=== PATIENT | male | born 1970 | race African-American/Black ===

== ENCOUNTER 2021-01-24 19:11 | Emergency (ER) | payer BC, MEDICAID ==
--- NOTE | 2021-01-24 19:31 | PCM.EKG ---
#1 Interpretation EKG Date: 01/24/21 Time: 19:23 Rhythm: NSR Rate (Beats/Min): 100 [place]: Normal P-Wave: Present QRS: Normal ST-T: Normal QT: Normal Comparison: NA - No Prior EKG EKG Interpretation Comments: Sinus tachycardia
[2021-01-24] MEDS ORDERED: Aspirin 81 MG Tab.Chew PO ONE (19:33)
[2021-01-24] MEDS ORDERED: Ketorolac 15 MG/ML SDV IM ONE (19:53)
--- NOTE | 2021-01-24 20:13 | CR ---
INDICATION: Chest pain. TECHNIQUE: Chest 1 view. COMPARISON: None FINDINGS: Cardiovascular and mediastinum: Heart size and vasculature are normal in caliber and appearance. Mediastinum is within normal limits. Lungs and pleural space: Lungs are clear. No sign of infiltrate or mass. No sign of pleural effusion. No pneumothorax. Bones and soft tissues: No significant findings. IMPRESSION: Lungs are clear. Dictated by Maynor Rucker MD @ 01/24/2021 8:11:37 PM (Electronically Signed)
[2021-01-24 20:29] LABS: BLOOD UREA NITROGEN,BUN 8 mg/dL (7.0-18.0); CARBON DIOXIDE,CO2 28.6 mmol/L (21.0-32.0); CHLORIDE,CL 103 mmol/L (98-107); GLUCOSE RANDOM 122 mg/dL (74-106); POTASSIUM,K 3.7 mmol/L (3.5-5.1); SODIUM,NA 140 mmol/L (136-148)
[2021-01-24] MEDS ORDERED: Iopamidol 755 MG/ML 500 ML Multipack Bottle IVPUSH ONE (21:56)
[2021-01-24 22:50] LABS: CORONAVIRUS COVID-19 NAA POSITIVE (NEGATIVE); INFLUENZA A NAA NEGATIVE (NEGATIVE); INFLUENZA B NAA NEGATIVE (NEGATIVE)
--- NOTE | 2021-01-24 23:09 | EDM.PDOC ---
ED HPI GENERAL MEDICAL PROBLEM - General Chief Complaint: Headache Stated Complaint: HEADACHE Time Seen by Provider: 01/24/21 19:20 - History of Present Illness INITIAL COMMENTS - FREE TEXT/NARRATIVE: CHIEF COMPLAINT(S): Headache and chest pain HISTORY OF PRESENT ILLNESS: This is a 50-year-old man without any significant past medical history who comes to the emergency department with a chief complaint of headache and chest pain. The patient states that for approximately 1 day now he has been experiencing headache and chest pain. He describes his headache as bifrontal not associated with any blurry vision, double vision, loss of vision, numbness, tingling, weakness. In addition he states that he is also experiencing right-sided chest pain which is intermittent. He denies any shortness of breath, cough, runny nose. He currently rates both pain as 5 out of 10. He has not yet tried anything for the pain. There are no exacerbating or relieving factors. He states that he is vaccinated however he did get his first dose 3 days ago. He denies any history of CAD or CHF, recent travel, recent surgery or prior history of DVT or PE. REVIEW OF SYSTEMS: Constitutional: Denies fever, chills. Eyes: Denies eye pain Ears, Nose, Mouth, & Throat: Denies earache Cardiovascular: Positive for chest pain Respiratory: Denies shortness of breath Gastrointestinal: Denies Nausea, vomiting, diarrhea, hematochezia. Genitourinary: Denies hematuria Skin:Denies a rash MSK: Denies joint pain Neurological: Positive for headache. Denies blurred vision, numbness, tingling, weakness, diplopia Psychiatric: Denies depression PAST MEDICAL HISTORY: As per history of present illness and as reviewed below otherwise noncontributory. SURGICAL HISTORY: As per history of present illness and as reviewed below otherwise noncontributory. SOCIAL HISTORY: As per history of present illness and as reviewed below otherwise noncontributory. FAMILY HISTORY: As per history of present illness and as reviewed below otherwise noncontributory. EXAMINATION OF ORGAN SYSTEMS/BODY AREAS: Constitutional: Blood pressure is 162/92, heart rate 98, respiratory rate 16 with an oxygen saturation 98% on room air. Temperature 36.5 General: Well-appearing man who is in no acute distress Psychiatric: Appropriate mood and affect. Eyes: No scleral icterus or conjunctival erythema ENMT: Moist mucous membranes. No pharyngeal erythema Cardiovascular: Regular, rate, and rhythm. No gallops, murmurs, or rubs. Bilateral upper extremity pulses symmetric and intact. No peripheral edema. No JVD. Respiratory: Lungs clear to auscultation bilaterally. No wheezes, rales, or rhonchi. Gastrointestinal: Soft, non-tender, non-distended. Normoactive bowel sounds Genitourinary: No suprapubic tenderness Musculoskeletal: Normal range of motion. Skin: No lesions or abrasions. Neurological: AOx4. CN grossly intact. Strength 5/5 in bilateral upper and lower extremity. Sensation is intact bilaterally in upper and lower extremity. Gait appears normal. Finger to nose, heel to solorio, rapid alternating movements intact. MEDICAL DECISION MAKING AND COURSE IN THE ED WITH INTERPRETATION/REVIEW OF DIAGNOSTIC STUDIES: This is a 50-year-old man without any significant past medical history who comes to the emergency department with bifrontal headache and intermittent chest pain who overall appears well and is mildly hypertensive. At this time given his age will obtain on ACS work-up. In addition PE is a consideration will obtain a D-dimer for stratification and obtaining angiogram if it is positive. Screening EKG was unremarkable. We will provide the patient with aspirin and Toradol for pain relief. DDx: ACS, Covid, pneumonia, pulmonary embolism Laboratory: CBC is unremarkable. BMP is unremarkable. Troponin is negative. D-dimer is elevated at 0.61. The radiological images were viewed by myself along with reading the report from the radiologist. Chest x-ray does not reveal an acute cardiopulmonary process. Given the elevated D-dimer will obtain a CT angiogram of the chest to evaluate for pulmonary embolism. The radiological images were viewed by myself along with reading the report from the radiologist. CT angiogram of the chest reveals no evidence of pulmonary embolism or acute intrathoracic process. Laboratory: Covid is positive. Influenza is negative. After labs and imaging I did discuss the results with the patient. I discussed that he would be stable for discharge. He was given strict return precautions and is to isolate for the next 10 days. He was amenable discharge and had no further questions DISPOSITION: The patient was discharged home in stable condition. The patient will follow up with primary care physician after isolation CONDITION: Fair PROCEDURES: None FINAL IMPRESSION(S)/DIAGNOSES: 1. Acute COVID-19 infection Hector Mccormick M.D. Right Chest Pain Score (Numeric/FACES): 5 - Related Data Allergies Allergy/AdvReac Type Severity Reaction Status Date / Time No Known Allergies Allergy Verified 01/24/21 19:20 Home Meds: Home Meds . [No Known Home Meds] 09/19/17 [History] Past Medical History - Past Health History Medical/Surgical History: Denies Medical/Surgical History - Infectious Disease History Infectious Disease History: Reports: None Social & Family History - Family History Family Medical History: No Pertinent Family History - Tobacco Use Tobacco Use Status *Q: Never Tobacco User - Caffeine Use Caffeine Use: Reports: Coffee - Recreational Drug Use Recreational Drug Use: No ED ROS GENERAL - Review of Systems Review Of Systems: See Below ED EXAM, GENERAL - Physical Exam Exam: See Below Course - Vital Signs Last Recorded V/S: Last Vital Signs Temp 36.1 C 01/25/21 00:09 Pulse 81 01/25/21 00:09 Resp 14 01/25/21 00:09 BP 151/82 H 01/25/21 00:09 Pulse Ox 98 01/25/21 00:09 - Orders/Labs/Meds Labs: Laboratory Tests 01/24/21 01/24/21 01/24/21 Range/Units 19:53 19:53 19:53 WBC 5.83 (4.0-11.0) K/uL RBC 4.64 (4.50-5.90) M/uL Hgb 14.0 (13.0-17.0) g/dL Hct 40.3 (38.0-50.0) % MCV 86.9 (80.0-98.0) fL MCH 30.2 (27.0-32.0) pg MCHC 34.7 (31.0-37.0) g/dL RDW Std Deviation 42.1 (28.0-62.0) fl RDW Coeff of Payal 13 (11.0-15.0) % Plt Count 252 (150-400) K/uL MPV 10.80 (7.40-12.00) fL Neut % (Auto) 61.6 (48.0-80.0) % Lymph % (Auto) 30.4 (16.0-40.0) % [place] % (Auto) 7.5 (0.0-15.0) % Eos % (Auto) 0.3 (0.0-7.0) % Baso % (Auto) 0.2 (0.0-1.5) % Neut # (Auto) 3.6 (1.4-5.7) K/uL Lymph # (Auto) 1.8 (0.6-2.4) K/uL [place] # (Auto) 0.4 (0.0-0.8) K/uL Eos # (Auto) 0.0 (0.0-0.7) K/uL Baso # (Auto) 0.0 (0.0-0.1) K/uL Nucleated RBC % 0.0 /100WBC Nucleated RBCs # 0 K/uL D-Dimer, Quantitative 0.61 H (0.0-0.50) mg/L FEU Sodium 140 (136-148) mmol/L Potassium 3.7 (3.5-5.1) mmol/L Chloride 103 (98-107) mmol/L Carbon Dioxide 28.6 (21.0-32.0) mmol/L BUN 8 (7.0-18.0) mg/dL Creatinine 0.9 (0.8-1.3) mg/dL Est Cr Clr Drug Dosing 93.45 mL/min Estimated GFR (MDRD) > 60.0 ml/min Glucose 122 H (74-106) mg/dL Calcium 8.9 (8.5-10.1) mg/dL Magnesium 2.1 (1.8-2.4) mg/dL Troponin I < 0.050 (0.000-0.056) ng/mL Influenza Type A RNA (NEGATIVE) Influenza Type B RNA (NEGATIVE) SARS-CoV-2 RNA (JOHN) (NEGATIVE) 01/24/21 Range/Units 22:03 WBC (4.0-11.0) K/uL RBC (4.50-5.90) M/uL Hgb (13.0-17.0) g/dL Hct (38.0-50.0) % MCV (80.0-98.0) fL MCH (27.0-32.0) pg MCHC (31.0-37.0) g/dL RDW Std Deviation (28.0-62.0) fl RDW Coeff of Payal (11.0-15.0) % Plt Count (150-400) K/uL MPV (7.40-12.00) fL Neut % (Auto) (48.0-80.0) % Lymph % (Auto) (16.0-40.0) % [place] % (Auto) (0.0-15.0) % Eos % (Auto) (0.0-7.0) % Baso % (Auto) (0.0-1.5) % Neut # (Auto) (1.4-5.7) K/uL Lymph # (Auto) (0.6-2.4) K/uL [place] # (Auto) (0.0-0.8) K/uL Eos # (Auto) (0.0-0.7) K/uL Baso # (Auto) (0.0-0.1) K/uL Nucleated RBC % /100WBC Nucleated RBCs # K/uL D-Dimer, Quantitative (0.0-0.50) mg/L FEU Sodium (136-148) mmol/L Potassium (3.5-5.1) mmol/L Chloride (98-107) mmol/L Carbon Dioxide (21.0-32.0) mmol/L BUN (7.0-18.0) mg/dL Creatinine (0.8-1.3) mg/dL Est Cr Clr Drug Dosing mL/min Estimated GFR (MDRD) ml/min Glucose (74-106) mg/dL Calcium (8.5-10.1) mg/dL Magnesium (1.8-2.4) mg/dL Troponin I (0.000-0.056) ng/mL Influenza Type A RNA NEGATIVE (NEGATIVE) Influenza Type B RNA NEGATIVE (NEGATIVE) SARS-CoV-2 RNA (JOHN) POSITIVE H (NEGATIVE) Meds: Medications Discontinued Medications Generic Name Dose Route Start Last Admin Trade Name Freq PRN Reason Stop Dose Admin Aspirin 324 mg 01/24/21 19:33 01/24/21 19:43 Aspirin 81 Mg Tab.Chew PO 01/24/21 19:34 324 mg ONETIME ONE Administration Iopamidol 100 ml 01/24/21 21:56 01/24/21 22:12 Iopamidol 755 Mg/Ml 500 Ml Multipack Bottle IVPUSH 01/24/21 21:57 100 ml ONETIME ONE Administration Ketorolac Tromethamine 15 mg 01/24/21 19:53 01/24/21 20:09 Ketorolac 15 Mg/Ml Sdv IM 01/24/21 19:54 15 mg ONETIME ONE Administration Departure - Departure Time of Disposition: 00:09 Disposition: Home, Self-Care 01 Condition: Fair Clinical Impression: COVID-19 - Discharge Information *PRESCRIPTION DRUG MONITORING PROGRAM REVIEWED*: No *COPY OF PRESCRIPTION DRUG MONITORING REPORT IN PATIENT JA: No Instructions: 10 Things You Can Do to Manage Your COVID-19 Symptoms at Home - [facility] (09/05/2020), Symptoms of COVID-19 - [facility] (04/14/2020), COVID-19: Quarantine vs. Isolation - [facility] (02/07/2020) Referrals: PCP,None [Primary Care Provider] - Forms: ED Department Discharge Additional Instructions: You were evaluated today on an emergent basis. At this time you were diagnosed with COVID-19. I do believe this is causing your symptoms. You should take acetaminophen 500-1000 mg every 6 hours as needed for fever and muscle aches. Please drink plenty of fluids and get plenty of rest over the next several days. We would recommend that you get a pulse oximeter from the pharmacy to keep an eye on your oxygen level. If your oxygen level drops below 91%, you should return to the ED for evaluation. You should return to the ER sooner if you start having any symptoms of shortness of breath or any other new or concerning symptoms. 1. Your COVID-19 screening is positive. That means you do have the coronavirus and you are considered contagious. Your vital signs and oxygen saturation are well enough that you were able to monitor your symptoms at home. Continue to monitor for trouble breathing, new confusion or inability to arouse, bluish lips or face or any of the other symptoms we discussed -if this occurs please return to the emergency room. 2. Please self quarantine over the next 10 days. Inform any persons that you have been in contact with since you started becoming symptomatic that you have tested positive; they should be made aware and take the appropriate steps as needed. 3. May alternate Tylenol and ibuprofen as needed for pain and fever management. 4. The [facility] department will be calling you and following up with you. The [place] COVID 19 Hotline phone number , They are open [place] - Tuesday 7am - 7pm. Follow up with your primary care provider for re-evaluation and re-testing after the 10 day quarantine and discuss when you should be seen. [facility] [address] [place] [address] [facility] [address] [place] [id number] The patient is informed of any results of their evaluation and diagnostic workup and all questions are answered. They are given discharge instructions and return precautions. The patient is stable for discharge. The patient states they understand and agree with the plan and that they will return if their symptoms get worse or if they have any new concerns. The following information is given to patients seen in the emergency department who are being discharged to home. This information is to outline your options for follow-up care. We provide all patients seen in our emergency department with a follow-up referral. The need for follow-up, as well as the timing and circumstances, are variable depending upon the specifics of your emergency department visit. If you don't have a primary care physician on staff, we will provide you with a referral. We always advise you to contact your personal physician following an emergency department visit to inform them of the circumstance of the visit and for follow-up with them and/or the need for any referrals to a consulting specialist. The emergency department will also refer you to a specialist when appropriate. This referral assures that you have the opportunity for follow-up care with a specialist. All of these measure are taken in an effort to provide you with optimal care, which includes your follow-up. Under all circumstances we always encourage you to contact your private physician who remains a resource for coordinating your care. When calling for follow-up care, please make the office aware that this follow-up is from your recent emergency room visit. If for any reason you are refused follow-up, please contact the [facility] Emergency Department at and asked to speak to the emergency department charge nurse. Sepsis Event Note (ED) - Evaluation Sepsis Screening Result: No Definite Risk
--- NOTE | 2021-01-24 23:12 | CT ---
INDICATION: Chest pain, shortness of breath TECHNIQUE: Contrast enhanced axial CT imaging through the chest, optimized for assessment of the pulmonary arterial tree. 100 mL Isovue 370 contrast agent was administered intravenously. Sagittal and coronal reconstructions are provided. COMPARISON: None FINDINGS: There is adequate opacification of the pulmonary arterial tree without evidence of thromboembolism. The main pulmonary artery is nonenlarged. The heart is normal in size. There is no pericardial effusion. The thoracic aorta is normal in caliber. There is no mediastinal lymphadenopathy. The lungs are clear. There is no pleural effusion or pneumothorax. The thoracic osseous structures are unremarkable. No significant abnormality is demonstrated in the visualized upper abdomen. IMPRESSION: No evidence of pulmonary embolism or other acute intrathoracic process. Please note that all CT scans at this facility use dose modulation, iterative reconstruction, and/or weight-based dosing when appropriate to reduce radiation dose to as low as reasonably achievable. Dictated by Shree Tong MD @ 01/24/2021 11:10:47 PM (Electronically Signed)
== END 2021-01-25 00:44 | disposition home or self-care (01) ==
LOC: MW.ED 19:11
DX: U07.1 COVID-19 (principal)
CPT/HCPCS: 0240U; 36415; 71045; 71275; 80048; 83735; 84484; 85025; 85379; 93005; 96372; 99285; A9270; J1885; Q9967

== ENCOUNTER 2022-01-24 17:38 | Emergency (ER) | payer MEDICAID ==
[2022-01-24 18:36] LABS: CORONAVIRUS COVID-19 NAA POSITIVE (NEGATIVE); INFLUENZA A NAA NEGATIVE (NEGATIVE); INFLUENZA B NAA NEGATIVE (NEGATIVE); RESPIRATORY SYNCYTIAL VIR NAA NEGATIVE (NEGATIVE)
== END 2022-01-24 19:04 | disposition home or self-care (01) ==
LOC: MW.ED 17:38
DX: U07.1 COVID-19 (principal)
CPT/HCPCS: 0241U; 99283

== ENCOUNTER 2022-01-28 14:22 | Emergency (ER) | payer MEDICAID ==
[2022-01-28 15:26] LABS: CARBON DIOXIDE,CO2 27.7 mmol/L (21.0-32.0); POTASSIUM,K 4.1 mmol/L (3.5-5.1)
== END 2022-01-28 17:49 | disposition home or self-care (01) ==
LOC: MW.ED 14:22
DX: R07.89 Other chest pain (principal)
CPT/HCPCS: 36415; 71045; 71045-26; 80053; 84484; 85025; 93005; 99285